=== PATIENT | male | born 1975 | race Two or more races ===

== ENCOUNTER 2017-07-28 07:17 | Day surgery (SDC) | payer OTHER ==
[~2017-07-28 07:17] MED LIST: TENORMIN50 MG PO
== END 2017-07-28 15:15 | disposition home or self-care (01) ==
LOC: CIR.AMB 07:17
DX: M24.432 Recurrent dislocation, left wrist (principal)

== ENCOUNTER 2018-06-29 06:16 | Day surgery (SDC) | payer OTHER | END 2018-06-29 17:20 | disposition home or self-care (01) | LOC: CIR.AMB 06:16 | DX: M19.031 Primary osteoarthritis, right wrist (principal) ==

== ENCOUNTER 2019-09-13 07:03 | Day surgery (SDC) | payer OTHER | END 2019-09-13 17:00 | disposition home or self-care (01) | LOC: CIR.AMB 07:03 → ADM 08:15 → CIR.AMB 15:45 | PROVIDERS: ATTEND Orthopaedic Surgery Hand Surgery | DX: M19.131 Post-traumatic osteoarthritis, right wrist (principal) ==